=== PATIENT | male | born 1945 | race Caucasian/White ===

== ENCOUNTER → 2025-01-08 | Outpatient (CLI) | payer OTHER ==
[~2025-01-08] MED LIST: IOHEXOL-350 75 ML VIAL IV ONE
--- NOTE | 2025-01-08 13:29 | HMCIMG ---
CT CHEST WITHOUT AND WITH CONTRAST INDICATION: Thoracic aortic aneurysm or evaluation TECHNIQUE: Routine axial images using 5 mm slice thickness were acquired from the lung apices to the bases before and after the administration of 100 mL of Isovue 370 IV contrast.Coronal and sagittal reformatted images acquired for interpretation. CT was performed with one or more of the following dose reduction techniques: Automated exposure control, adjustment of the mA and/or kV according to patient size, or use of iterative reconstruction technique. COMPARISON: None FINDINGS: The heart size is normal. Coronary arterial wall calcific plaque noted. No pericardial effusion noted. Ascending aortic caliber measures 5.4 cm. Mild calcific plaque along the aortic arch and thoracic aortic torres. No surrounding inflammatory fat stranding or free fluid. No evidence for dissection. The trachea and airways are patent. No evidence for pulmonary nodule, consolidation, cavitary lesion, or other abnormal pulmonary parenchymal opacity. No axillary, hilar, or mediastinal lymphadenopathy. No pleural effusion or pneumothorax identified. Gallbladder is absent. Incompletely imaged 5.5 cm simple exophytic left renal cyst. Visible osseous structures are intact. IMPRESSION: Ascending aortic aneurysmal dilation without any complications, including no evidence for dissection.
== END | disposition home or self-care (01) ==
LOC: RAH 11:51
PROVIDERS: ATTEND Internal Medicine Cardiovascular Disease
DX: I71.21 Aneurysm of the ascending aorta, without rupture (principal); I71.20 Thoracic aortic aneurysm, without rupture, unspecified; N28.1 Cyst of kidney, acquired; I25.10 Atherosclerotic heart disease of native coronary artery without angina pectoris; I70.0 Atherosclerosis of aorta; Z90.49 Acquired absence of other specified parts of digestive tract
CPT/HCPCS: 71270; Q9967